=== PATIENT | female | born 1985 | race Caucasian/White ===

== ENCOUNTER → 2020-09-03 13:25 | Outpatient (CLI) | payer OTHER, SELFPAY ==
[2020-09-05 13:17] LABS: HSV 1 IgG, Type Spec 3.56 index (0.00-0.90); HSV 2 IgG, Type Spec <0.91 index (0.00-0.90)
== END ==
PROVIDERS: Visit Provider Nurse Practitioner Obstetrics & Gynecology
DX: N90.89 Other specified noninflammatory disorders of vulva and perineum (principal)
CPT/HCPCS: 36415; 86695; 86696; 86790

== ENCOUNTER → 2020-10-25 14:15 | Outpatient (CLI) | payer OTHER, SELFPAY ==
[2020-10-25 14:19] LABS: Microscopic, Urine URINE MICROSCOPIC (MICROSCOPIC)
[2020-10-25 14:24] LABS: Appearance,Urine CLEAR (Clear); Bilirubin,Urine Negative (Negative); Blood, Urine 3+ (Negative); Color,Urine YELLOW (Yellow); Glucose,Urine (UA) Negative (Negative); Ketones,Urine Negative (Negative); Leukocyte Esterase,Urine TRACE (Negative); Nitrate,Urine Negative (Negative); Protein,Urine 2+ (Negative); Specific Gravity, Urine >= 1.030 (1.005-1.030); Urobilinogen,Urine 0.2 EU/dl (0.2)
[2020-10-25 14:39] LABS: Amorphous Sediment,Urine Trace /lpf; RBC,Urine 50-100 #/hpf (0-3)
== END ==
PROVIDERS: Visit Provider Nurse Practitioner Family
DX: R30.0 Dysuria (principal)
CPT/HCPCS: 81001; 87086; 87088; 87186

== ENCOUNTER → 2021-10-19 20:20 | Outpatient (CLI) | payer BC, SELFPAY | PROVIDERS: Visit Provider Nurse Practitioner Family | DX: R10.9 Unspecified abdominal pain (principal) | CPT/HCPCS: 87086 ==

== ENCOUNTER → 2021-12-14 14:41 | Outpatient (CLI) | payer BC, SELFPAY | PROVIDERS: PCP Internal Medicine Adolescent Medicine; Visit Provider Nurse Practitioner | DX: Z20.822 Contact with and (suspected) exposure to COVID-19 (principal) | CPT/HCPCS: C9803; U0003; U0005 ==

== ENCOUNTER → 2023-11-09 08:10 | Outpatient (CLI) | payer BC, SELFPAY ==
[2023-11-09 08:29] LABS: Basophils % 1.1 % (0.1-2.0); Eosinophils # 0.1 K/mm3 (0.0-0.4); Eosinophils % 2.5 % (0.1-12.0); Hematocrit 45.3 % (37.0-47.0); Hemoglobin 15.2 g/dL (12.2-16.2); Lymphocytes # 1.3 K/mm3 (0.7-4.5); Lymphocytes % 31.5 % (10-50); Mean Corpuscular HGB Conc 33.5 g/dL (31.8-35.4); Mean Corpuscular Hemoglobin 32.1 pg (27.0-31.2); Mean Corpuscular Volume 95.8 fl (81-99); Mean Platelet Volume 7.3 fl (7.4-10.4); Monocytes # 0.2 K/mm3 (0.1-1.0); Neutrophils # 2.5 K/mm3 (1.8-7.8); Neutrophils % 59.9 % (37.0-80.0); Platelet Count 339 K/mm3 (142-424); Red Blood Count 4.72 M/mm3 (4.20-5.40); Red Cell Distribution Width 12.5 % (11.5-17.5); White Blood Count 4.2 K/mm3 (4.8-10.8)
[2023-11-09 09:34] LABS: Chloride 102 mmol/L (98-107); Potassium 4.4 mmoL/L (3.5-5.1); Sodium 139 mmol/L (136-145)
[2023-11-09 09:36] LABS: Alanine Aminotransferase 25 U/L (12-78); Alkaline Phosphatase 48 U/L (38-126); Aspartate Amino Transferase 28 U/L (14-36); Bilirubin,Total 0.4 mg/dl (0.2-1.3); Blood Urea Nitrogen 14 mg/dl (7-17); Estimated Glomerular Filt Rate 111 ml/min (>60); GFR (African American) 134 ML/MIN (>60)
[2023-11-09 09:37] LABS: Albumin Level 4.7 g/dl (3.5-5.0); Albumin/Globulin Ratio 1.9 (1.1-1.8); Anion Gap 9.4 mEq/L (5-15); Carbon Dioxide 32 mmol/L (22.0-30.0); Globulin 2.5 g/dL (1.3-3.2); Glucose 99 mg/dl (74-100); Total Protein,Serum 7.2 g/dl (6.3-8.2)
[2023-11-10 10:08] LABS: Estradiol 47.2 pg/mL (.); Progesterone 0.3 ng/mL (.); Testosterone,Total <3 ng/dL (8-60)
== END ==
PROVIDERS: PCP Internal Medicine Adolescent Medicine; Visit Provider Obstetrics & Gynecology
DX: Z00.00 Encounter for general adult medical examination without abnormal findings (principal); G43.909 Migraine, unspecified, not intractable, without status migrainosus; N95.1 Menopausal and female climacteric states; R53.83 Other fatigue; R63.5 Abnormal weight gain; Z68.27 Body mass index [BMI] 27.0-27.9, adult
CPT/HCPCS: 36415; 80053; 82670; 84144; 84403; 85025

== ENCOUNTER 2025-05-07 14:05 | Outpatient (CLI) | payer BC, SELFPAY ==
--- OUTSIDE RECORDS SUMMARY | 2025-05-07 14:13 | XMS_ITS | Data Portability ---
Author Organization [place] - [facility] , [employer] [facility] Address [address] [place] [address] Assessment No assessment recorded. Plan of Treatment Reminders Order Date Submit Date Provider Last Modified By Organization Details Last Modified Time Details Appointments None recorded. Lab None recorded. Referral None recorded. Procedures None recorded. Surgeries None recorded. Imaging None recorded. Medication Orders prednisone 10 mg tablet 2024 025 [facility], [address] [place], [id number], 11:58:18 Patient TargetsNo targets recorded. Patient Instructions Encounter Date Encounter Id Patient Instructions Last Modified By Organization Details Last Modified Time 02/21/2025 [id number] Acute Sinusitis: Care Instructions [email or web address] Not available 02/21/2025 08:08:31 Reason for Referral None Reported. Medical Equipment None Reported. Allergies No known drug allergies Medications Name Sig Start Date Stop Date Status Note LastModified by Organization Details LastModified Time cyclobenzap rine 10 mg tablet TAKE ONE TABLET BY MOUTH THREE TIMES DAILY NEEDED MAY CAUSE DROWSINES S active Not Available Not Available No t Available prednisone 10 mg tablet ONCE DAILY by mouth: Take 5 tabs x 1 day; then 4 tabs x 1 day; then 3 tabs x 1 day; then 2 tabs x 1 day; then 1 tab x 1 day; then stop 2024 active Not Available Not Available Not Avai lable paroxetine 10 mg tablet TAKE ONE TABLET BY MOUTH EVERY DAY active Not Available Not Available No t Available progesteron e micronized 200 mg capsule TAKE ONE CAPSULE BY MOUTH EVERY DAY IN THE EVENING active Not Available Not Available No t Available methylpredn isolone 4 mg tablets in a dose pack 02/21 completed [NOT TAKIN G] Not Available Not Available Not Available Blisovi Fe 1.5/30 (28) 1.5 mg-30 mcg (21)/75 mg (7) tablet TAKE ONE TABLET BY MOUTH EVERY DAY active Not Available Not Available No t Available Nurtec ODT 75 mg disintegrat ing tablet TAKE ONE TABLET BY MOUTH ONCE DAILY AT ONSET OF MIGRAINE NEEDED active Not Available Not Available No t Available Vitals None Recorded Social History None recorded. Functional Status None recorded. Mental Status None recorded. Family History Nothing Reported. Medical History No medical history recorded. Gynecological HistoryNo gynecological history recorded. Obstetrics History GPAL:G 0 P 0 0 0 0 Past Encounters Encounter ID Performer Location Encounter Start Date Encounter Closed Date Diagnosis/Indication Diagnosis SNOMED-CT Code Diagnosis ICD10 Code Diagnosis Note [id number] BRUNILDA Campbell [facility] [address] [place] [address] 02/21/2025 07:48:59 02/21/2025 08:13:26 Acute maxillary sinusitis 69196723 J01.00 Differenti al Diagnosis: Acute bacterial rhinosinus itis vs viral URI vs Sinusitis vs Covid This patient symptoms are consistent with sinusitis. Advised to start on Paulette and Flonase. Push fluids and get rest. Advise humidifier at night. Will send rx for prednisone . Cannot rule out Influenza or COVID. Advised testing and discussed quarantine at least until results return and continued if positive. To test on day 4-10 of symptoms. Follow up in 3-5 days if not improved or sooner if needed. Health Concerns Section Related Observation LastModified by Organization Detai ls LastModified Time None Recorded Concern Status LastModified by Organization Details LastModified Time None Recorded Advance Directives Directive None Recorded Payers Insurance Date Sequence Insurance Name Policy Number Policy Card Covered Member ID Card Member ID Guarantor Name 02/21/2025 1 [facility] [id number] Ade Díaz [id number] Ade Díaz 12/11/2024 2 *SELF PAY* [id number] Ade Díaz [id number] Ade Díaz 12/11/2024 1 *SELF PAY* Martha Díaz 02/21/2025 [facility] [id number] Ade Díaz [id number] Ade Díaz Notes Date Note Type Note Provider Name and Address Organization Details Recorded Time 02/21/2025 text/html Call connected, patient greeted. Patient name, , telephone number, and location verified verbally with the patient. Telemedicine limitations reviewed, answered all questions the patient had about the telehealth interaction, and verbal consent obtained to treat. Clinician attests they are physically located in the [facility] during time of visit. Chief Complaint: uri sx HPI: Patient is a 39 year old female. Reports head congestion which started about 5 days ago. Has runny nose and pnd. Cough only at night. No chest congestion. No fever noted.Tried dayquil mucinex, sudafed which may have helped.Denies sick contacts. Did not take flu/covid test. BRUNILDA Campbell [address] [place] [address] [address] [place], [address], [facility] - [facility] 02/21/2025 08:08:34 OBGyn Episode No OBEpisode recorded.
[2025-05-07 15:48] LABS: 25-OH Vitamin D, Total 84.6 ng/mL (30-100)
== END 2025-05-07 23:59 | disposition home or self-care (01) ==
LOC: LAB 14:06
PROVIDERS: PCP Internal Medicine Adolescent Medicine; Visit Provider Obstetrics & Gynecology
DX: E55.9 Vitamin D deficiency, unspecified (principal)
CPT/HCPCS: 36415; 82306